=== PATIENT | female | born 1950 | race Two or more races ===

== ENCOUNTER 2020-07-13 09:45 | Inpatient (IN) | payer OTHER ==
[~2020-07-13] VITALS: Ht 157.5 cm; Wt 77.6 kg
[2020-07-13] MEDS ORDERED: HORIZANT300 MG PO (14:54)
[2020-07-13] MEDS ORDERED: ATORVAST PO (14:54)
[2020-07-13] MEDS ORDERED: GLIPIZIDE XL10 MG PO (14:55)
[2020-07-13] MEDS ORDERED: ZESTRIL5 MG PO (14:56)
[2020-07-13] MEDS ORDERED: AMLOD PO (14:56)
[2020-07-20] MEDS ORDERED: CLEARLAX119 GM (10:40)
[2020-07-20] MEDS ORDERED: ATORVASTATIN CA40 MG (10:41)
[2020-07-20] MEDS ORDERED: LAXATIVE5 MG (10:41)
[2020-07-20] MEDS ORDERED: OMEPRAZOLE40 MG (10:41)
[2020-07-20] MEDS ORDERED: AMLODIPINE BESY10 MG PO (10:41)
== END 2020-07-22 17:21 | disposition home or self-care (01) | DRG 330 ==
LOC: O/R 07-20 07:18 → SURG 07-20 07:18 → SURH 07-20 09:45 → SURG 07-20 15:37 → SURH 07-20 17:30 → SURG 07-22 17:21
PROVIDERS: ADMIT Colon & Rectal Surgery; ATTEND Colon & Rectal Surgery
PROC: 07BB4ZZ Excision of Mesenteric Lymphatic, Percutaneous Endoscopic Approach (ICD-10-PCS; 2020-07-20)
PROC: 0DTF4ZZ Resection of Right Large Intestine, Percutaneous Endoscopic Approach (ICD-10-PCS; principal; 2020-07-20 17:30)
DX: D12.0 Benign neoplasm of cecum (principal); D12.2 Benign neoplasm of ascending colon; K92.1 Melena; I10 Essential (primary) hypertension; E11.9 Type 2 diabetes mellitus without complications

== ENCOUNTER → 2023-01-25 | Day surgery (SDC) | payer OTHER ==
[~2023-01-25] VITALS: Ht 157.5 cm; Wt 73.5 kg
[~2023-01-25] MED LIST: AMLOD PO; AMLODIPINE BESY10 MG PO; ATORVAST PO; ATORVASTATIN CA40 MG; CLEARLAX119 GM; GLIPIZIDE XL10 MG PO; HORIZANT300 MG PO; LAXATIVE5 MG; OMEPRAZOLE40 MG; ZESTRIL5 MG PO
== END | disposition home or self-care (01) ==
LOC: ADM 01-24 15:00 → CIR.AMB 05:43
PROVIDERS: ATTEND Surgery
DX: D05.11 Intraductal carcinoma in situ of right breast (principal); R59.0 Localized enlarged lymph nodes; I10 Essential (primary) hypertension; Z20.822 Contact with and (suspected) exposure to COVID-19; E21.0 Primary hyperparathyroidism; E04.1 Nontoxic single thyroid nodule; E78.2 Mixed hyperlipidemia
CPT/HCPCS: 19301; 19281; A9541; L8699